=== PATIENT | female | born 1980 | race Caucasian/White ===

== ENCOUNTER 2020-06-04 15:30 | Emergency (ER) | payer OTHER, SELFPAY ==
--- NOTE | ~2020-06-04 | XR_ITS ---
EXAMINATION: XR CHEST CLINICAL INFORMATION: Chest pain COMPARISON: None TECHNIQUE: Frontal view of the chest was obtained. FINDINGS: No significant abnormality is noted involving the heart, lungs, mediastinum, bony thorax or soft tissues. XR/XR chest 1V IMPRESSION: Unremarkable examination.
[2020-06-04 16:33] VITALS: BP 138/76; PULSE 77; RESP 16; TEMP 36.8; O2SAT 100; BMI 29.2
--- NOTE | 2020-06-04 16:38 | ECG_ITS ---
Test Reason : CHEST PAIN Blood Pressure : / mmHG Vent. Rate : 082 BPM Atrial Rate : 082 BPM P-R Int : 130 ms QRS Dur : 070 ms QT Int : 364 ms P-R-T Axes : 030 029 006 degrees QTc Int : 425 ms Normal sinus rhythm Nonspecific T wave abnormality Abnormal ECG No previous ECGs available Referred By: Generic ED Physician Electronically Signed By:Vamsi Saenz
--- NOTE | 2020-06-04 16:50 | ED_ITS ---
HPI - Chest Pain General Chief Complaint: Chest Pain Stated Complaint: Chest pain Time Seen by Provider: 06/04/20 16:49 Source: patient Mode of arrival: ambulatory Limitations: no limitations History of Present Illness HPI narrative: Patient with chest pain for 5 days that goes to her shoulder the pain lasts for an hour and gets it a few times a day. Not associated with anything, and has been happening mostly at night. Patient having new stress secondary to divorce and restraining orders. MD complaint: chest heaviness Onset (ago): day(s) Timing of current episode: episodic Prior episodes: Yes Onset: during rest Pain location: substernal Pain radiation: right arm Severity: moderate Quality: heaviness Relieving factors: nothing Exacerbating factors: nothing Risk Factors Coronary artery disease risk factors: none Related Data Allergies Allergy/AdvReac Type Severity Reaction Status Date / Time No Known Allergies Allergy Verified 06/04/20 16:37 Review of Systems Constitutional: Constitutional: Reports no additional constitutional complaints Eyes: Eyes: Reports no additional eye complaints ENT: Denies dizziness Cardiovascular: Cardiovascular: Reports no additional cardiovascular complaints Respiratory: Respiratory: Reports as per HPI Gastrointestinal: Gastrointestinal: Reports no additional gastrointestinal complaints Genitourinary: Genitourinary: Reports no additional female genitourinary complaints Musculoskeletal: Musculoskeletal: Reports no additional musculoskeletal c omplaints Integumentary/Breasts: Skin/Breast: Denies rash Neurologic: Reports system reviewed and no additional complaints, except as documented, Denies dizziness and Denies Sensory deficit (Neuro) Psychiatric: Psychiatric: Denies anxiety [facility] Past Medical History Medical History (Updated 06/04/20 @ 18:02 by Thien Hernandez MD) No known health problems Social History Social History Advance Directives: No Advance Directives Information Provided: Yes Physical Exam Vital Signs: Vital Signs: Last Vital Signs Temp 98.1 F 06/04/20 17:19 Pulse 67 06/04/20 17:19 Resp 16 06/04/20 17:19 BP 124/81 06/04/20 17:19 Pulse Ox 99 06/04/20 17:19 Body Mass Index 29.2 Const: General: healthy appearing Nutritional Appearance: average body habitus Orientation/consciousness: oriented to person and patient oriented x3 Limitations: no limitations HENMT: Head: Yes normal to inspection Ears: external ears normal General nose exam: Normal external nose present Mouth: Normal oral and palatal mucosa present and oropharynx normal Throat: Yes posterior oropharynx normal Eyes: General: appearance normal, both eyes and all related structures Neck: Other: supple Neck: Yes normal visual inspection Chest: Chest palpation & inspection: normal inspection of the chest Resp: Auscultation: clear to auscultation bilaterally Cardio: Jugular venous distension: no JVD Rate: regular rate Rhythm: regular rhythm Heart sounds: S1 normal heart sound present and S2 normal heart sound present GI: Inspection: Yes normal to inspection Palpation (GI): Soft to palpation, nontender and No hepatosplenomegaly present Auscultation: normal bowel sounds : General: Yes no CVA tenderness Back/Spine/Pelvis: Back: no CVA tenderness Skin: General skin exam: no rashes or lesions noted Neuro: General: oriented to person and patient oriented x3 Cranial nerves: Yes CN's II-XII intact bilaterally Motor exam (neuro): 5/5 motor strength present throughout Sensory Exam: No Sensory deficit (Neuro) Extrem: General: Yes normal to inspection Psych: Appearance: grossly normal Course Course Course Narrative: Labs, xray, troponin and EKG normal will dc home with stress MDM - Chest Pain Differential Diagnosis Differential diagnosis: Likely stable angina, unstable angina pectoris, atypical chest pain and chest pain Differential diagnosis: anxiety Lab Data Result diagrams: 06/04/20 16:45 06/04/20 16:45 Labs: Lab Results 06/04/20 06/04/20 06/04/20 Range/Units 16:45 16:45 16:45 WBC 7.6 (4.8-10.8) X10*3/uL RBC 4.51 (4.20-5.50) X10*6/uL Hgb 13.0 (12.0-16.0) g/dl Hct 38.7 (37-47) % MCV 85.8 (80-98) fL MCH 28.8 (27.0-33.0) pg MCHC 33.6 (31.0-35.0) g/dl RDW 12.7 (11.0-16.0) % Plt Count 284 (160-400) X10*3/uL MPV 10.2 (9.4-12.3) fL Immature Gran % (Auto) 0.3 (0.0-0.4) % Neut % (Auto) 65.4 (45-73) % Lymph % (Auto) 24.9 (20-40) % Randolph % (Auto) 6.7 (2-11) % Eos % (Auto) 2.6 (0-4) % Baso % (Auto) 0.1 (0-2) % Lymph # (Auto) 1.9 (1.2-4.9) X10*3/uL Randolph # (Auto) 0.5 (0.1-1.2) X10*3/uL Eos # (Auto) 0.2 (0.0-0.4) X10*3/uL Baso # (Auto) 0.0 (0.0-0.2) X10*3/uL Abs Immat Gran (auto) 0.02 (0.00-0.03) X10*3/uL Absolute Neuts (auto) 4.9 (2.0-8.3) X10*3/uL Absolute Nucleated RBC 0.000 (0.0-0.012) X10*3/uL Nucleated RBC % (auto) 0.0 (0.0-0.2) /100WBC Hold Blue Top SEE NOTE Troponin I High Sens < 3.5 (<3.5-17.0) ng/L Imaging Data Chest x-ray: Radiologist's impression: normal chest xray ECG Data ECG #1: Attestation: I personally reviewed and interpreted this ECG as follows: Interpretation: normal sinus rate of 80, no st or twave changes Discharge Plan Discharge Clinical Impression: Atypical chest pain, Anxiety Patient Disposition: Home, Self-Care Instructions: Chest Pain (ED), Anxiety (ED) Referrals: Physician,Unknown [Primary Care Provider] - 2 days
[2020-06-04 16:51] LABS: MANUAL DIFF FLAG NO
[2020-06-04 16:54] LABS: Basophils Percent Auto 0.1 % (0-2); Eosinophils Absolute Auto 0.2 X10*3/uL (0.0-0.4); Eosinophils Percent Auto 2.6 % (0-4); Hematocrit 38.7 % (37-47); Imm Gran Abs Auto 0.02 X10*3/uL (0.00-0.03); Imm Gran Pct Auto 0.3 % (0.0-0.4); Lymphocytes Absolute Auto 1.9 X10*3/uL (1.2-4.9); Lymphocytes Percent Auto 24.9 % (20-40); Mean Corpuscular HGB Conc 33.6 g/dl (31.0-35.0); Mean Corpuscular Hemoglobin 28.8 pg (27.0-33.0); Mean Corpuscular Volume 85.8 fL (80-98); Mean Platelet Volume 10.2 fL (9.4-12.3); Monocytes Absolute Auto 0.5 X10*3/uL (0.1-1.2); Monocytes Percent Auto 6.7 % (2-11); Neutrophils Absolute Auto 4.9 X10*3/uL (2.0-8.3); Neutrophils Percent Auto 65.4 % (45-73); Platelet Count 284 X10*3/uL (160-400); Red Blood Count 4.51 X10*6/uL (4.20-5.50); Red Cell Distribution Width 12.7 % (11.0-16.0); White Blood Count 7.6 X10*3/uL (4.8-10.8)
[2020-06-04 17:19] VITALS: BP 124/81; PULSE 67; RESP 16; TEMP 36.7; O2SAT 99
[2020-06-04 17:22] LABS: Troponin-I High Sensitivity < 3.5 ng/L (<3.5-17.0)
[2020-06-04 18:04] VITALS: PULSE 76
[2020-06-04 18:28] LABS: Anion Gap 14 (12-20); Blood Urea Nitrogen 16 mg/dL (9-16); Calcium 8.9 mg/dL (8.4-10.2); Carbon Dioxide 21 mmol/L (22-29); Chloride 107 mmol/L (96-108); Creatinine Clr Calc Pharmacy 99.9; Estimated Glomerular Filt Rate > 60; Glucose Random 114 mg/dL (60-115); Sodium 138 mmol/L (135-145)
== END 2020-06-04 18:25 | disposition home or self-care (01) ==
PROVIDERS: Emergency Provider Emergency Medicine
DX: R07.89 Other chest pain (principal); F41.9 Anxiety disorder, unspecified; Z72.89 Other problems related to lifestyle; Z63.5 Disruption of family by separation and divorce
CPT/HCPCS: 36415; 71045; 80048; 84484; 85025; 93005; 99283; 99285

== ENCOUNTER 2020-12-17 15:42 | Outpatient (REF) | payer OTHER, SELFPAY | END 2020-12-17 15:43 | disposition home or self-care (01) | LOC: HO.LAB 15:42 | PROVIDERS: Visit Provider Internal Medicine | DX: Z20.822 Contact with and (suspected) exposure to COVID-19 (principal) | CPT/HCPCS: C9803; U0003; U0005 ==

== ENCOUNTER 2022-05-08 12:01 | Emergency (ER) | payer OTHER, MEDICAID, SELFPAY ==
[2022-05-08 12:15] VITALS: BP 140/85; PULSE 77; RESP 16; TEMP 36.6; O2SAT 97; BMI 32.5
--- NOTE | 2022-05-08 12:16 | ED_ITS ---
HPI - Ear Problem General Chief complaint: Ear Problems Stated complaint: pain in ear Time Seen by Provider: 05/08/22 12:20 Source: patient Mode of arrival: ambulatory Limitations: no limitations History of Present Illness MD Complaint: ear pain Location: left ear Duration: constant Severity: moderate Relieving factors: nothing Exacerbating factors: chewing and palpation Discharge from ear: no Treatment prior to arrival: none Related Data Previous Rx's Medication Instructions Recorded cyclobenzaprine 10 mg tablet 10 mg PO Q8H #14 tabs 05/08/22 ibuprofen 800 mg tablet 800 mg PO Q8H PRN pain #14 tabs 05/08/22 Allergies Allergy/AdvReac Type Severity Reaction Status Date / Time No Known Allergies Allergy Verified 06/04/20 16:37 Review of Systems Review of Systems: Constitutional : No Weight loss, No Fever, No Chills, No Night Sweats, No Fatigue, No Malaise ENT/Mouth : No Hearing loss, + Ear Pain, No Nasal Congestion, No Sinus Pain, No Hoarseness, No sore throat, No Rhinorrhea, No Swallowing Difficulty Eyes: No Eye Pain, No Swelling, No Redness, No Foreign Body, No Discharge, No Vision Changes Cardiovascular : No Chest Pain, No SOB, No Dyspnea on Exertion, No Orthopnea, No Edema, No Palpitations Respiratory : No Cough, No Sputum, No Wheezing, No Smoke Exposure, No Dyspnea Gastrointestinal : No Nausea, No Vomiting, No Diarrhea, No Constipation, No abdominal Pain, No Hematochezia, No Melena Genitourinary : no irregular bleeding, No Dysuria, No Urinary Frequency, No Hematuria, No Urinary Incontinence, No Urgency, No Flank Pain, No Urinary Flow Changes, No Hesitancy Musculoskeletal : No joint pain, No Myalgias, No Joint Swelling Skin : No Skin Lesions, No rash Neuro : No Weakness, No Numbness, No Paresthesias, No Loss of Consciousness, No Dizziness, No Headache Psych : No Anxiety/Panic, No Depression, No SI/HI/AH/VH, No Social Issues, Heme/Lymph: No Bruising, No Bleeding,No Lymphadenopathy Endocrine : No Polyuria, No Polydipsia, No Temperature Intolerance Yes all other systems are reviewed and are negative PMFSH Past Medical History Attestation statement: The following information was validated with the patient. Source: old records reviewed and nursing notes reviewed Medical History No known health problems Social History Social History Alcohol intake: never Advance Directives: No Advance Directives Information Provided: Yes Physical Exam Vital Signs: Vital Signs: Last Vital Signs Temp 98 F 05/08/22 12:15 Pulse 77 05/08/22 12:15 Resp 16 05/08/22 12:15 BP 140/85 H 05/08/22 12:15 Pulse Ox 97 05/08/22 12:15 O2 Del Method 05/08/22 12:15 BMI result Body Mass Index 32.5 vital signs have been reviewed as normal and appeared to be correct. Blood pressure normal Heart rate normal. Respiration rate normal. Temperature normal. Oxygen saturation normal. Appearance: Alert. Oriented X3. No acute distress. Head: Normal external exam. Normocephalic. Atraumatic. Eyes: PERRLA. EOMI. Conjunctiva and sclera normal. Eyelids normal. ENT: TM WNL. EAC WNL. Patient with tenderness to palpation over the left TMJ muscles. No crepitus is noted. She appears to grind her teeth. Not consistent mastoiditis. No rashes are noted. Pharynx normal. Uvula midline. Moist mucous membranes. Neck: Normal inspection. Neck supple. FROM. CVS: Normal heart rate and rhythm. Respiratory: No respiratory distress. Painless inspiration. Skin: Skin warm and dry. Normal skin color. Normal skin turgor. No rashes/lesions/lacerations noted. Extremities: No lower extremity edema. Extremities exhibit normal range of motion. Extremities nontender. Neuro: Oriented X 3. No motor deficit. No sensory deficit. Reflexes normal. Normal steady gait. No focal neuro deficits noted. Vascular: + radial pulses/+ 2 distal pedal pulses/+2 dorsalis pedis b/l. Normal cap refill. No cyanosis noted to upper extremity nails and lower extremity toes nails. Course Course Course Narrative: Patient with TMJ syndrome. Not consistent mastoiditis. Not consistent with otitis externa or media. Will DC home with symptomatic treatment instructions return if any new or worsening symptoms follow up with primary care provider. Patient understands agrees with this plan. Discharge Plan Discharge Clinical Impression: TMJ syndrome Patient Disposition: Home, Self-Care Instructions: Temporomandibular Disorder (ED) Prescriptions: New ibuprofen 800 mg tablet 800 mg PO Q8H PRN (Reason: pain) Qty: 14 0RF cyclobenzaprine 10 mg tablet 10 mg PO Q8H Qty: 14 0RF Referrals: Physician,Unknown J [Primary Care Provider] - (your pcp as needed in 2 days ) Interventions: ED Discharge Assessment Last Done: 05/08/22 12:24 Discharge Date/Time: 05/08/22 12:28 Print Language: [place]
== END 2022-05-08 12:28 | disposition home or self-care (01) ==
LOC: HO.ED 12:25
PROVIDERS: Emergency Provider Student in an Organized Health Care Education/Training Program
DX: M26.622 Arthralgia of left temporomandibular joint (principal); H92.02 Otalgia, left ear
CPT/HCPCS: 99282; 99283